=== PATIENT | male | born 1995 | race Caucasian/White ===

== ENCOUNTER 2023-10-17 22:24 | Emergency (ER) | payer BC ==
[~2023-10-17] VITALS: Ht 185.4 cm; Wt 113.0 kg
[2023-10-17 22:28] VITALS: O2SAT 99
[2023-10-17 22:36] VITALS: BP 155/104; PULSE 78; RESP 14; TEMP 97.7; O2SAT 100
[2023-10-17] MEDS ORDERED: METF-416 MT (23:27)
[2023-10-17] MEDS ORDERED: CEPH500C2 MT (23:27)
== END 2023-10-17 23:36 | disposition home or self-care (01) ==
LOC: ER 22:24
DX: L97.509 Non-pressure chronic ulcer of other part of unspecified foot with unspecified severity (principal); I10 Essential (primary) hypertension; Z76.0 Encounter for issue of repeat prescription
CPT/HCPCS: 99283